=== PATIENT | male | born 1970 | race Caucasian/White ===

== ENCOUNTER 2023-10-08 16:26 | Outpatient (CLI) | payer OTHER, SELFPAY ==
[2023-10-08 17:13] LABS: Basophils Percent Auto 0.4 % (0.2-1.2); Eosinophils Absolute Auto 0.2 K/mm3 (0-0.3); Eosinophils Percent Auto 2.5 % (0-4.4); Hematocrit 47.1 % (42.0-52.0); Immature Granulocyte Absolute 0.03 K/mm3 (0.00-0.031); Immature Granulocyte Percent A 0.4 % (0-0.5); Lymphocytes Absolute Auto 2.16 K/mm3 (0.9-3.2); Lymphocytes Percent Auto 26.5 % (18.3-44.2); Mean Corpuscular Hemoglobin 30.4 pg (26-34); Mean Corpuscular Volume 89.4 fl (80-100); Mean Platelet Volume 9.4 fl (7.4-10.4); Monocytes Absolute Auto 0.6 K/mm3 (0.1-0.6); Monocytes Percent Auto 7.8 % (2.6-8.5); Neutrophils Absolute Auto 5.1 K/mm3 (1.3-6.7); Neutrophils Percent Auto 62.4 % (45.5-73.1); Platelet Count Result 226 k/mm3 (150-375); Red Blood Count 5.27 M/mm3 (4.6-6.20); Red Cell Distribution Width 12.3 % (11.5-14.5); White Blood Count 8.2 K/mm3 (4.5-10.0)
[2023-10-08 18:56] LABS: Alanine Aminotransferase 50 U/L (6-50); Albumin Level 4.4 g/dL (3.5-5.1); Alkaline Phosphatase 89 U/L (38-126); Anion Gap 7 mmol/L (8-16); Aspartate Amino Transferase 39 U/L (17-59); Bilirubin,Total 1.4 mg/dL (0.2-1.3); Blood Urea Nitrogen 17 mg/dL (9-20); Calcium 9.4 mg/dL (8.4-10.2); Carbon Dioxide 29 mmol/L (22-30); Chloride 102 mmol/L (98-107); Cholesterol 236 mg/dL (0-200); Estimated Glomerular Filt Rate > 60; Glucose 86 mg/dL (65-110); HDL Direct 41 mg/dL; Sodium 138 mmol/L (137-145); Triglycerides 110 mg/dL (<150)
[2023-10-08 19:07] LABS: LDL Cholesterol Direct 163 mg/dL
[2023-10-08 19:28] LABS: Prostate Specific Antigen 0.7 ng/mL (< OR = 4.0)
== END 2023-10-08 16:27 | disposition home or self-care (01) ==
PROVIDERS: PCP Family Medicine; Visit Provider Physician Assistant Medical
DX: R30.0 Dysuria (principal); Z13.29 Encounter for screening for other suspected endocrine disorder; Z13.1 Encounter for screening for diabetes mellitus; Z13.220 Encounter for screening for lipoid disorders; Z12.5 Encounter for screening for malignant neoplasm of prostate; E78.5 Hyperlipidemia, unspecified; R03.0 Elevated blood-pressure reading, without diagnosis of hypertension
CPT/HCPCS: 36415; 80053; 80061; 84153; 84443; 85025; G0103

== ENCOUNTER 2025-03-11 14:31 | Outpatient (CLI) | payer BC, SELFPAY ==
--- NOTE | ~2025-03-11 | XR_ITS ---
[id number]_[id number] 03/11/2025 14:52 Indication: Cervicalgia Procedure: 3 view cervical spine Comparison: 08/07/2019 Findings: There is straightening of cervical lordosis. No prevertebral soft tissue abnormality. No fo reign bodies. There is disc narrowing at C3-4, C5-6 and C6-7. There is uncinate hypertrophy at C5-6 a nd C6-7. Lung apices are normal. Odontoid process is normal. Impression: 1: Moderate cervical spondylosis with progression at C3-4, C5-6 and C6-7. Reviewed, dictated and finalized at location A. Impression: 1: Moderate cervical spondylosis with progression at C3-4, C5-6 and C6-7.
--- NOTE | ~2025-03-11 | XR_ITS ---
XR elbow RT 2V Ordering provider: Ashley Hong NP History: . M25.529 - Pain in unspecified elbow . Comparison: None. FINDINGS: BONES: No acute fracture or dislocation. JOINT SPACES: Normal. SOFT TISSUES: Ossification of the insertion of the triceps tendon. Otherwise, Unremarkable. No defin ite joint effusion. IMPRESSION: No acute osseous abnormality of the right elbow. Reviewed, dictated and finalized at location A.
== END 2025-03-11 14:32 | disposition home or self-care (01) ==
LOC: ANHIMG 14:33
PROVIDERS: PCP Family Medicine
DX: M47.812 Spondylosis without myelopathy or radiculopathy, cervical region (principal); M25.529 Pain in unspecified elbow
CPT/HCPCS: 72040; 73070